=== PATIENT | male | born 1945 | race Caucasian/White ===

== ENCOUNTER 2017-09-26 08:54 | Day surgery (SDC) | payer OTHER ==
[2017-09-26 09:16] VITALS: TEMP 97
[2017-09-26] MEDS ORDERED: Propofol 10 mg/ml Inj (20 ML) ONE (11:09)
[2017-09-26] MEDS ORDERED: Lactated Ringer's 500 ML IV ONE (11:11)
[2017-09-26] MEDS ORDERED: Lidocaine Hydrochloride 5 ML INJ ONE (11:16)
[2017-09-26 12:46] VITALS: RESP 18; O2SAT 97
[2017-09-26 12:52] VITALS: BP 135/62; PULSE 85
== END 2017-09-26 13:00 | disposition home or self-care (01) ==
LOC: C.ENDO 08:54
PROVIDERS: ATTEND Internal Medicine Gastroenterology
DX: R10.13 Epigastric pain (principal); Z12.11 Encounter for screening for malignant neoplasm of colon; K64.2 Third degree hemorrhoids; I10 Essential (primary) hypertension; K21.9 Gastro-esophageal reflux disease without esophagitis; E78.5 Hyperlipidemia, unspecified; Z79.82 Long term (current) use of aspirin; Z79.899 Other long term (current) drug therapy; Z87.891 Personal history of nicotine dependence; D12.5 Benign neoplasm of sigmoid colon
CPT/HCPCS: 43239; 45385; 88305; J2704; J7120

== ENCOUNTER 2018-06-11 09:15 | Day surgery (SDC) | payer OTHER ==
[2018-06-11 10:24] VITALS: O2SAT 100
[2018-06-11 10:25] VITALS: BMI 26.1
[2018-06-11] MEDS ORDERED: Propofol 10 mg/ml Inj (20 ML) ONE (13:10)
[2018-06-11] MEDS ORDERED: Phenylephrine 10 mg/ml Inj ONE (13:14)
[2018-06-11 14:08] VITALS: TEMP 97.8
[2018-06-11 15:05] VITALS: BP 108/56; PULSE 86; RESP 14
== END 2018-06-11 15:00 | disposition home or self-care (01) ==
LOC: C.ENDO 09:15
PROVIDERS: ATTEND Internal Medicine Gastroenterology
DX: D50.9 Iron deficiency anemia, unspecified (principal); K26.9 Duodenal ulcer, unspecified as acute or chronic, without hemorrhage or perforation; K29.80 Duodenitis without bleeding; K64.1 Second degree hemorrhoids; K55.21 Angiodysplasia of colon with hemorrhage

== ENCOUNTER 2018-06-29 10:00 | Emergency (ER) | payer OTHER ==
[2018-06-29 10:01] VITALS: BMI 26.1
[2018-06-29 10:10] VITALS: BP 126/74; PULSE 106; RESP 20; TEMP 98; O2SAT 98
--- NOTE | 2018-06-29 10:23 | C.PDOC ---
History Of Present Illness 73 y/o male presents to ED stating he has difficulty sleeping for the past week, and passes gas all night. Patient denies any headache, abdominal pain, dizziness, visual disturbances, nausea, or vomiting. States he went to see his PMD yesterday but was unable to get any medications. Patient has no physical complaints at this time. Time Seen by Provider: 06/29/18 10:12 Chief Complaint (Nursing): Medical Clearance History Per: Patient History/Exam Limitations: no limitations Onset/Duration Of Symptoms: Days Current Symptoms Are (Timing): Still Present Past Medical History Reviewed: Historical Data, Nursing Documentation, Vital Signs Vital Signs: Last Vital Signs Temp 98 F 06/29/18 10:04 Pulse 106 H 06/29/18 10:04 Resp 20 06/29/18 10:04 BP 126/74 06/29/18 10:04 Pulse Ox 98 06/29/18 10:04 - Medical History PMH: HTN, Hypercholesterolemia Denies: Chronic Kidney Disease Surgical History: Endoscopy Family History: States: No Known Family Hx - Social History Hx Alcohol Use: No Hx Substance Use: No - Immunization History Hx Tetanus Toxoid Vaccination: No Hx Influenza Vaccination: Yes (02/2018) Hx Pneumococcal Vaccination: Yes (2018) Review Of Systems Except As Marked, All Systems Reviewed And Found Negative. Constitutional: Negative for: Fever, Chills Eyes: Negative for: Vision Change Respiratory: Negative for: Shortness of Breath Gastrointestinal: Negative for: Nausea, Vomiting, Abdominal Pain Neurological: Negative for: Headache, Dizziness Physical Exam - Physical Exam Appears: Non-toxic, No Acute Distress Skin: Warm, Dry Head: Atraumatic, Normacephalic Eye(s): bilateral: Normal Inspection Neck: Supple Cardiovascular: Rhythm Regular, No Murmur Respiratory: Normal Breath Sounds, No Rales, No Rhonchi, No Wheezing Gastrointestinal/Abdominal: Soft, No Tenderness Extremity: No Pedal Edema Extremity: Bilateral: Atraumatic, Normal ROM Neurological/Psych: Oriented x3, Normal Speech, Normal Cognition ED Course And Treatment O2 Sat by Pulse Oximetry: 98 (RA) Pulse Ox Interpretation: Normal Disposition - Disposition Referrals: [facility] at [facility] [Outside] [facility] at [facility] [Outside] [facility] [place] [Outside] Disposition: HOME/ ROUTINE Disposition Time: 10:29 Condition: GOOD Prescriptions: Aluminum Hydroxide/Magnesium H [Maalox 30 ml] 30 ml PO Q8 #1 [facility] [place] Instructions: Acid Reflux (Gastroesophageal Reflux Disease), Adult (DC) Forms: [employer] ([place]ican) - Clinical Impression Clinical Impression: Acid reflux - Scribe Statement The provider has reviewed the documentation as recorded by the Ronnyibasif Acuña Provider Attestation: All medical record entries made by the Ronnyibe were at my direction and personally dictated by me. I have reviewed the chart and agree that the record accurately reflects my personal performance of the history, physical exam, medical decision making, and the department course for this patient. I have also personally directed, reviewed, and agree with the discharge instructions and disposition.
== END 2018-06-29 10:32 | disposition home or self-care (01) ==
LOC: C.ER 10:00
DX: K21.9 Gastro-esophageal reflux disease without esophagitis (principal); I10 Essential (primary) hypertension; E78.00 Pure hypercholesterolemia, unspecified